=== PATIENT | female | born 1960 | race Caucasian/White ===

== ENCOUNTER 2017-05-03 12:37 | Emergency (ER) | payer OTHER ==
[2017-05-03] MEDS ORDERED: SODIUM CHLORIDE 0.9% 1,000 ML IV ONE (13:08)
[2017-05-03] MEDS ORDERED: PROCHLORPERAZINE 10 MG/2 ML VIAL IVP STA (13:08)
[2017-05-03] MEDS ORDERED: KETOROLAC 60 MG/2 ML VIAL IVP STA (13:08)
[2017-05-03] MEDS ORDERED: diphenhydrAMINE INJ 50 MG/ML VIAL IVP STA (13:08)
[2017-05-03] MEDS ORDERED: hydroCHLOROthiazide 25 MG TABLET PO STA (13:09)
[2017-05-03] MEDS ORDERED: LISINOPRIL 5 MG TABLET PO STA ×2 (13:09→15:22)
--- NOTE | 2017-05-03 13:12 | ED Physician Documentation ---
PD HPI HEADACHE - Stated complaint Stated Complaint: MIGRAINE - Chief complaint Chief Complaint: Neuro - History obtained from History obtained from: Patient - History of Present Illness Timing - onset: How many days ago (3) Timing - details: Still present Location: Front Quality: Throbbing Associated symptoms: Nausea. No: Fever, Vomiting Worsened by: Light, Noise, Moving Contributing factors: No: Recent illness Similar symptoms before: Diagnosis (migraines) - Additional information Additional information: The patient is a 56-year-old female who presents with migraine headache that started 3 days ago and persists. She describes it as a throbbing headache mostly in the frontal region. She reports associated photosensitivity and nausea. She denies vomiting or fever. She has a history of similar headaches since her teenage years. Her last similar headache was about 1 week ago. She also has history of hypertension for which she takes lisinopril/ hydrochlorothiazide. She has been out of her antihypertensive medication for the past month. She is also out of Maxalt which she normally uses to help with her headache. Review of Systems Constitutional: denies: Fever Eyes: reports: Photophobia. denies: Discharge Ears: denies: Tinnitus/ringing Nose: denies: Congestion Throat: denies: Sore throat Cardiac: denies: Chest pain / pressure Respiratory: denies: Dyspnea, Cough GI: reports: Nausea. denies: Abdominal Pain, Vomiting : denies: Dysuria Skin: denies: Rash Musculoskeletal: denies: Neck pain, Extremity swelling Neurologic: reports: Headache. denies: Focal weakness, Numbness PD PAST MEDICAL HISTORY - Past Medical History Cardiovascular: None Respiratory: None Neuro: Headache/migraine Endocrine/Autoimmune: None GI: None - Present Medications Home Medications: Ambulatory Orders Medication Instructions Recorded Confirmed Lisinopril/Hydrochlorothiazide 1 each PO DAILY #30 tablet 05/03/17 [Lisinopril-Hctz 20-25 mg Tab] Rizatriptan Benzoate [Maxalt] 10 mg PO ONCE PRN #20 tablet 05/03/17 - Allergies Allergies/Adverse Reactions: Allergies Allergy/AdvReac Type Severity Reaction Status Date / Time propoxyphene napsylate * Allergy Unknown Verified 05/03/17 12:48 [From Darvocet-N] acetaminophen [From Percocet] AdvReac Hallucinati Verified 05/03/17 12:48 ons morphine AdvReac Emesis Verified 05/03/17 12:48 oxycodone HCl * AdvReac Hallucinati Verified 05/03/17 12:48 [From Percocet] ons propoxyphene HCl * AdvReac Hallucinati Verified 05/03/17 12:48 [From Darvon] ons PD ED PE NORMAL - Vitals Vital signs reviewed: Yes (hypertensive) - General General: Alert and oriented X 3, Other (Overweight) - HEENT HEENT: Atraumatic, PERRL, EOMI, Ears normal, Pharynx benign, Other (Fundi with sharp disc margins.) - Neck Neck: Supple, no meningeal sign, No adenopathy, No JVD - Cardiac Cardiac: RRR, No murmur - Respiratory Respiratory: No respiratory distress, Clear bilaterally - Abdomen Abdomen: Soft, Non tender - Back Back: No CVA TTP - Derm Derm: No rash - Extremities Extremities: No edema, No calf tenderness / cord - Neuro Neuro: Alert and oriented X 3, No motor deficit, No sensory deficit Results - Vitals Vitals: Vital Signs - 24 hr 05/03/17 05/03/17 12:44 14:23 Temperature 36.4 C L Heart Rate 76 57 L Respiratory 18 18 Rate Blood Pressure 153/103 H 157/86 H O2 Saturation 97 99 Oxygen O2 Source Room air PD MEDICAL DECISION MAKING - ED course Complexity details: reviewed results, re-evaluated patient, considered differential, d/w patient, d/w family ED course: The patient's presentation is significant for headache, consistent with migraine. She also has hypertension, and reports being out of her antihypertensive medication for the past month. Her presentation does not suggest meningitis, temporal arteritis, intracranial hemorrhage, or pseudotumor cerebri. Treatment in the emergency department included administration of normal saline 1 L IV, Compazine 10 mg IV, Benadryl 50 mg IV, and ketorolac 30 mg IV. In addition she was treated with her normal antihypertensive medication , including lisinopril 20 mg orally and hydrochlorothiazide 25 mg orally. She is being discharged with prescriptions for lisinopril/hydrochlorothiazide and for Maxalt. I discussed with her and her family the importance of outpatient follow-up, symptomatic treatment, as well as potentially worrisome signs or symptoms that should prompt reevaluation in the emergency department. Departure - Departure Disposition: 01 Home, Self Care Clinical Impression: Headache Qualifiers: Headache type: unspecified Headache chronicity pattern: acute headache Intractability: not intractable Qualified Code(s): R51 - Headache Hypertension Qualifiers: Hypertension type: unspecified secondary hypertension Qualified Code(s): I15.9 - Secondary hypertension, unspecified Condition: Stable Instructions: ED Headache Migraine Follow-Up: Meliton Fuentes MD [Primary Care Provider] - Prescriptions: Lisinopril/Hydrochlorothiazide [Lisinopril-Hctz 20-25 mg Tab] 1 each PO DAILY # 30 tablet Rizatriptan Benzoate [Maxalt] 10 mg PO ONCE PRN #20 tablet PRN Reason: Headache Comments: Drink plenty of fluids. Resume taking your blood pressure medication. You can use Maxalt as prescribed if needed for recurrent migraine. Schedule follow-up appointment with your primary physician. Return to the emergency department if you develop increasing headache, persistent vomiting, or otherwise worsening symptoms. Forms: Activity restrictions Discharge Date/Time: 05/03/17 14:44
[2017-05-03] MEDS ORDERED: PROCHLORPERAZINE 10 MG/2 ML VIAL ONE (13:27)
[2017-05-03] MEDS ORDERED: KETOROLAC 30 MG/ML VIAL ONE (13:27)
[2017-05-03] MEDS ORDERED: LISINOPRIL 5 MG TABLET ONE (13:27)
[2017-05-03] MEDS ORDERED: diphenhydrAMINE INJ 50 MG/ML VIAL ONE (13:27)
[2017-05-03] MEDS ORDERED: hydroCHLOROthiazide 25 MG TABLET ONE (13:27)
[2017-05-03 14:23] VITALS: BP 157/86
== END 2017-05-03 14:44 | disposition home or self-care (01) ==
LOC: ED 12:37
DX: R51 Headache (principal); I15.9 Secondary hypertension, unspecified
CPT/HCPCS: 36415; 96374; 96375; 99283; 99284; A9270

== ENCOUNTER 2019-07-10 10:57 | Emergency (ER) | payer OTHER ==
[2019-07-10 11:08] VITALS: BP 147/90
[2019-07-10 11:38] LABS: MUDS CUTOFF CONCENTRATIONS CUTOFF CONC BELOW:
[2019-07-10 11:40] LABS: BASOPHILS % (AUTO) 0.6 %; EOSINOPHILS # (AUTO) 0.1 10^3/uL (0.0-0.7); EOSINOPHILS % (AUTO) 1.7 %; HGB - HEMOGLOBIN 14.4 g/dL (12.0-16.0); LYMPHOCYTES # (AUTO) 0.9 10^3/uL (1.5-3.5); LYMPHOCYTES % (AUTO) 16.5 %; MEAN CORPUSCULAR HEMOGLOBIN 30.8 pg (27.0-31.0); MEAN CORPUSCULAR HGB CONC 33.2 g/dL (32.0-36.0); MEAN CORPUSCULAR VOLUME 92.9 fL (81.0-99.0); MEAN PLATELET VOLUME 9.7 fL (7.9-10.8); MONOCYTES # (AUTO) 0.3 10^3/uL (0.0-1.0); MONOCYTES % (AUTO) 4.8 %; NEUTROPHILS # (AUTO) 4.1 10^3/uL (1.5-6.6); PLT - PLATELET COUNT 237 10^3/uL (130-450); RED BLOOD COUNT 4.67 10^6/uL (4.20-5.40); RED CELL DISTRIBUTION WIDTH 12.6 % (12.0-15.0); WHITE BLOOD COUNT 5.4 x10^3/uL (4.8-10.8)
[2019-07-10 11:43] LABS: GLUCOSE, URINE (UA) NEGATIVE (NEGATIVE); KETONES,URINE (UA) 15 mg/dL (NEGATIVE); LEUKOCYTE ESTERASE, URINE NEGATIVE (NEGATIVE); NITRITE,URINE NEGATIVE (NEGATIVE); OCCULT BLOOD,URINE NEGATIVE (NEGATIVE); PROTEIN,URINE NEGATIVE (NEGATIVE); UROBILINOGEN,URINE 1 (NORMAL) E.U./dL (NORMAL)
--- NOTE | 2019-07-10 11:50 | ED Physician Documentation ---
PD HPI MHE - Stated complaint Stated Complaint: SI - Chief complaint Chief Complaint: MHE - History obtained from History obtained from: Patient - History of Present Illness Primary symptom: Suicidal ideation Timing - onset: How many days ago (3) Pain level max: 0 Pain level now: 0 Contributing factors: Family, Off meds - Additional information Additional information: 58-year-old female states that she has had increasing issues with her adult son for the past several years. He has had issues with drugs, depression and suicidality. That she is spending all of her time focused on taking care of him. She has lost her home and her car because of him. She is living in a new place with him. She states that he took her car a week ago and has not been home since. She stopped taking her medications several months ago. She states that she is feeling increasingly suicidal. She states that she stares at her kitchen knives. She is unsure if she can keep herself safe or not. She states that she does not want to abandon her son. Review of Systems Ten Systems: 10 systems reviewed and negative Constitutional: denies: Fever, Chills Cardiac: denies: Chest pain / pressure Respiratory: denies: Cough, Wheezing GI: denies: Abdominal Pain, Nausea, Vomiting, Diarrhea Skin: denies: Rash Musculoskeletal: denies: Neck pain, Back pain Neurologic: denies: Headache Psychiatric: reports: Depressed, Suicidal, Anxiety, Insomnia. denies: Hallucinations, Delusions PD PAST MEDICAL HISTORY - Past Medical History Cardiovascular: None Respiratory: None Endocrine/Autoimmune: None GI: None - Allergies Allergies/Adverse Reactions: Allergies Allergy/AdvReac Type Severity Reaction Status Date / Time propoxyphene napsylate * Allergy Unknown Verified 07/10/19 11:08 [From Darvocet-N] acetaminophen [From Percocet] AdvReac Hallucinati Verified 07/10/19 11:08 ons morphine AdvReac Emesis Verified 07/10/19 11:08 oxycodone HCl * AdvReac Hallucinati Verified 07/10/19 11:08 [From Percocet] ons propoxyphene HCl * AdvReac Hallucinati Verified 07/10/19 11:08 [From Darvon] ons - Social History Does the pt smoke?: No Smoking Status: Never smoker Does the pt drink ETOH?: No Does the pt have substance abuse?: No - Immunizations Immunizations are current?: Yes - POLST Patient has POLST: No PD ED PE NORMAL - Vitals Vital signs reviewed: Yes - General General: Alert and oriented X 3, No acute distress, Well developed/nourished - HEENT HEENT: PERRL, Moist mucous membranes - Neck Neck: Supple, no meningeal sign - Cardiac Cardiac: RRR, Strong equal pulses - Respiratory Respiratory: No respiratory distress, Clear bilaterally - Abdomen Abdomen: Soft, Non tender, Non distended - Derm Derm: Warm and dry - Extremities Extremities: No edema, No calf tenderness / cord - Neuro Neuro: Alert and oriented X 3 - Psych Psych: Other (Tearful) Results - Vitals Vitals: Vital Signs - 24 hr 07/10/19 11:02 Temperature 36.8 C Heart Rate 73 Respiratory 20 Rate Blood Pressure 147/90 H O2 Saturation 95 Oxygen O2 Source Room air - Labs Labs: Laboratory Tests 07/10/19 07/10/19 07/10/19 11:25 11:35 11:35 WBC 5.4 RBC 4.67 Hgb 14.4 Hct 43.4 MCV 92.9 MCH 30.8 MCHC 33.2 RDW 12.6 Plt Count 237 MPV 9.7 Neut # (Auto) 4.1 Lymph # (Auto) 0.9 L [place] # (Auto) 0.3 Eos # (Auto) 0.1 Baso # (Auto) 0.0 Absolute Nucleated RBC 0.00 Nucleated RBC % 0.0 Sodium 143 Potassium 3.2 L Chloride 106 Carbon Dioxide 24 Anion Gap 13.0 BUN 22 H Creatinine 0.5 Estimated GFR (MDRD) 126 Glucose 126 H Calcium 9.3 Total Bilirubin 1.1 H AST 19 ALT 21 Alkaline Phosphatase 108 Total Protein 7.4 Albumin 4.5 Globulin 2.9 Albumin/Globulin Ratio 1.6 Lipase 22 TSH Urine Color DARK YELLOW Urine Clarity CLEAR Urine pH 5.0 Ur Specific [place] >=1.030 H Urine Protein NEGATIVE Urine Glucose (UA) NEGATIVE Urine Ketones 15 H Urine Occult Blood NEGATIVE Urine Nitrite NEGATIVE Urine Bilirubin NEGATIVE Urine Urobilinogen 1 (NORMAL) Ur Leukocyte Esterase NEGATIVE Ur Microscopic Review NOT INDICATED Urine Culture Comments NOT INDICATED Salicylates < 6.0 Urine Opiates Screen NEGATIVE Ur Oxycodone Screen NEGATIVE Urine Methadone Screen NEGATIVE Ur Propoxyphene Screen NEGATIVE Acetaminophen < 10 L Ur Barbiturates Screen NEGATIVE Ur Tricyclics Screen NEGATIVE Ur Phencyclidine Scrn NEGATIVE Ur Amphetamine Screen NEGATIVE U Methamphetamines Scrn NEGATIVE U Benzodiazepines Scrn NEGATIVE Urine Cocaine Screen NEGATIVE U Cannabinoids Screen NEGATIVE Ethyl Alcohol < 5.0 07/10/19 11:35 WBC RBC Hgb Hct MCV MCH MCHC RDW Plt Count MPV Neut # (Auto) Lymph # (Auto) [place] # (Auto) Eos # (Auto) Baso # (Auto) Absolute Nucleated RBC Nucleated RBC % Sodium Potassium Chloride Carbon Dioxide Anion Gap BUN Creatinine Estimated GFR (MDRD) Glucose Calcium Total Bilirubin AST ALT Alkaline Phosphatase Total Protein Albumin Globulin Albumin/Globulin Ratio Lipase TSH 1.30 Urine Color Urine Clarity Urine pH Ur Specific [place] Urine Protein Urine Glucose (UA) Urine Ketones Urine Occult Blood Urine Nitrite Urine Bilirubin Urine Urobilinogen Ur Leukocyte Esterase Ur Microscopic Review Urine Culture Comments Salicylates Urine Opiates Screen Ur Oxycodone Screen Urine Methadone Screen Ur Propoxyphene Screen Acetaminophen Ur Barbiturates Screen Ur Tricyclics Screen Ur Phencyclidine Scrn Ur Amphetamine Screen U Methamphetamines Scrn U Benzodiazepines Scrn Urine Cocaine Screen U Cannabinoids Screen Ethyl Alcohol PD MEDICAL DECISION MAKING - ED course Complexity details: reviewed results, re-evaluated patient, considered differential, d/w patient, d/w art sales consultant ED course: Social work consulted. Patient is able to contract for safety. She is comfortable going home at this time. She will keep herself safe. She will follow-up with her doctor and a counselor. Patient counseled regarding signs and symptoms for which I believe and urgent re-evaluation would be necessary. Patient with good understanding of and agreement to plan and is comfortable g oing home at this time This document was made in part using voice recognition software. While efforts are made to proofread this document, sound alike and grammatical errors may occur. Departure - Departure Disposition: 01 Home, Self Care Clinical Impression: Depression Qualifiers: Depression Type: unspecified Qualified Code(s): F32.9 - Major depressive disorder, single episode, unspecified Condition: Good Instructions: ED Depression Follow-Up: HELADIO BARCLAY DO [Primary Care Provider] - 07/22/19 Comments: Follow-up with Dr. Barclay for further care. Return if you worsen. Crisis Line and is available to talk to someone [email or web address] is also available to chat with someone online if you prefer. There are also many resources on this website and apps for your phone to help with your mental health You can also text the word START to [phone] to chat with someome via text. Discharge Date/Time: 07/10/19 15:49
[2019-07-10 11:52] LABS: BILIRUBIN,URINE NEGATIVE (NEGATIVE); CLARITY,URINE CLEAR (CLEAR); ICTOTEST,URINE NEGATIVE
[2019-07-10 11:53] LABS: AMPHETAMINE SCREEN,URINE NEGATIVE (NEGATIVE); BENZODIAZEPINES SCREEN, URINE NEGATIVE (NEGATIVE); COCAINE SCREEN URINE NEGATIVE (NEGATIVE); METHADONE SCREEN, URINE NEGATIVE (NEGATIVE); METHAMPHETAMINES SCREEN, URINE NEGATIVE (NEGATIVE); OPIATE SCREEN, URINE NEGATIVE (NEGATIVE); OXYCODONE SCREEN, URINE NEGATIVE (NEGATIVE); PROPOXYPHENE SCREEN, URINE NEGATIVE (NEGATIVE); TRICYCLIC ANTIDEPRESSANT,URINE NEGATIVE (NEGATIVE)
[2019-07-10 12:01] LABS: ACETAMINOPHEN < 10 ug/mL (10-30); ALBUMIN 4.5 g/dL (3.2-5.5); ALBUMIN/GLOBULIN RATIO 1.6 (1.0-2.2); ALKALINE PHOSPHATASE 108 IU/L (42-121); ALT ALANINE AMINOTRANSFERASE 21 IU/L (10-60); AST ASPARTATE AMINOTRANSFERASE 19 IU/L (10-42); BILIRUBIN,TOTAL 1.1 mg/dL (0.2-1.0); BUN - BLOOD UREA NITROGEN 22 mg/dL (6-20); CALCIUM 9.3 mg/dL (8.5-10.3); CARBON DIOXIDE - CO2 24 mmol/L (21-32); CHLORIDE 106 mmol/L (101-111); CREATININE 0.5 mg/dL (0.4-1.0); GFR - MDRD 126 (>89); GLUCOSE 126 mg/dL (70-100); LIPASE 22 U/L (22-51); SALICYLATE < 6.0 mg/dL; SODIUM 143 mmol/L (135-145); TOTAL PROTEIN 7.4 g/dL (6.7-8.2)
== END 2019-07-10 15:49 | disposition home or self-care (01) ==
LOC: ED 10:57
DX: F32.9 Major depressive disorder, single episode, unspecified (principal); R45.851 Suicidal ideations
CPT/HCPCS: 36415; 80053; 80306; 80307; 80320; 80329; 81001; 81003; 83690; 84443; 85025; 87086; 99283

== ENCOUNTER 2019-07-11 12:12 | Emergency (ER) | payer OTHER ==
[2019-07-11 12:54] LABS: MUDS CUTOFF CONCENTRATIONS CUTOFF CONC BELOW:
[2019-07-11 12:57] LABS: GLUCOSE, URINE (UA) NEGATIVE (NEGATIVE); KETONES,URINE (UA) 15 mg/dL (NEGATIVE); LEUKOCYTE ESTERASE, URINE NEGATIVE (NEGATIVE); NITRITE,URINE NEGATIVE (NEGATIVE); OCCULT BLOOD,URINE NEGATIVE (NEGATIVE); PH,URINE 5.5 PH (5.0-7.5); PROTEIN,URINE NEGATIVE (NEGATIVE); UROBILINOGEN,URINE 2 E.U./dL (NORMAL)
[2019-07-11 13:09] LABS: BILIRUBIN,URINE SMALL (NEGATIVE); CLARITY,URINE CLEAR (CLEAR); ICTOTEST,URINE POSITIVE
[2019-07-11 13:10] LABS: AMPHETAMINE SCREEN,URINE NEGATIVE (NEGATIVE); BENZODIAZEPINES SCREEN, URINE NEGATIVE (NEGATIVE); COCAINE SCREEN URINE NEGATIVE (NEGATIVE); METHADONE SCREEN, URINE NEGATIVE (NEGATIVE); METHAMPHETAMINES SCREEN, URINE NEGATIVE (NEGATIVE); OPIATE SCREEN, URINE NEGATIVE (NEGATIVE); OXYCODONE SCREEN, URINE NEGATIVE (NEGATIVE); PROPOXYPHENE SCREEN, URINE NEGATIVE (NEGATIVE); TRICYCLIC ANTIDEPRESSANT,URINE NEGATIVE (NEGATIVE)
--- NOTE | 2019-07-11 13:35 | ED Physician Documentation ---
PD HPI MHE - Stated complaint Stated Complaint: MHE - Chief complaint Chief Complaint: MHE - History obtained from History obtained from: Patient, Friend - History of Present Illness Primary symptom: Suicidal ideation Timing - onset: How many days ago (several) Pain level max: 0 Pain level now: 0 Contributing factors: Family (heroin addicted son), Off meds (stopped taking her meds 7-8 months ago) Similar symptoms before: Diagnosis (depression, SI) Recently seen: Emergency Dept (yesterday for same. A safety plan was created at that time with social work. The patient's daughter was unable to stay with her last night. She states that her neighbors took the knives from her kitchen today. She states that she lined up all the old and leftover pills and she thought about taking them this morning. She is concerned that she is unable to keep herself safe. neighbor brought her back today. She requests voluntary placement today.) Review of Systems Ten Systems: 10 systems reviewed and negative Constitutional: denies: Fever, Chills Ears: denies: Ear pain Nose: denies: Rhinorrhea / runny nose, Congestion Throat: denies: Sore throat Cardiac: denies: Chest pain / pressure Respiratory: denies: Cough GI: denies: Vomiting, Diarrhea : denies: Now EGA Skin: denies: Rash Musculoskeletal: denies: Neck pain, Back pain Neurologic: denies: Headache PD PAST MEDICAL HISTORY - Past Medical History Cardiovascular: None Respiratory: None Endocrine/Autoimmune: None GI: None - Allergies Allergies/Adverse Reactions: Allergies Allergy/AdvReac Type Severity Reaction Status Date / Time propoxyphene napsylate * Allergy Unknown Verified 07/10/19 11:08 [From Darvocet-N] acetaminophen [From Percocet] AdvReac Hallucinati Verified 07/10/19 11:08 ons morphine AdvReac Emesis Verified 07/10/19 11:08 oxycodone HCl * AdvReac Hallucinati Verified 07/10/19 11:08 [From Percocet] ons propoxyphene HCl * AdvReac Hallucinati Verified 07/10/19 11:08 [From Darvon] ons - Social History Does the pt smoke?: No Smoking Status: Never smoker Does the pt drink ETOH?: No Does the pt have substance abuse?: No - Immunizations Immunizations are current?: Yes - POLST Patient has POLST: No PD ED PE NORMAL - Vitals Vital signs reviewed: Yes - General General: Alert and oriented X 3, No acute distress, Well developed/nourished - HEENT HEENT: PERRL, Moist mucous membranes - Neck Neck: Supple, no meningeal sign - Cardiac Cardiac: RRR, Strong equal pulses - Respiratory Respiratory: No respiratory distress, Clear bilaterally - Abdomen Abdomen: Soft, Non tender, Non distended - Derm Derm: Warm and dry - Extremities Extremities: No edema - Neuro Neuro: Alert and oriented X 3 - Psych Psych: Other (tearful) Results - Vitals Vitals: Vital Signs - 24 hr 07/11/19 07/11/19 12:21 18:06 Temperature 36.9 C 36.6 C Heart Rate 79 94 Respiratory 16 16 Rate Blood Pressure 184/84 H 146/71 H O2 Saturation 98 94 Oxygen O2 Source Room air - EKG (time done) 1336 Rate: Rate (enter#) (63) Rhythm: NSR [place]: Normal Intervals: Normal IN QRS: Normal Ischemia: Normal ST segments - Labs Labs: Laboratory Tests 07/11/19 07/11/19 07/11/19 12:45 13:35 13:35 WBC 6.9 RBC 4.57 Hgb 14.0 Hct 41.9 MCV 91.7 MCH 30.6 MCHC 33.4 RDW 12.6 Plt Count 251 MPV 9.8 Neut # (Auto) 5.5 Lymph # (Auto) 1.0 L [place] # (Auto) 0.3 Eos # (Auto) 0.1 Baso # (Auto) 0.0 Absolute Nucleated RBC 0.00 Nucleated RBC % 0.0 Sodium 143 Potassium 3.6 Chloride 106 Carbon Dioxide 27 Anion Gap 10.0 BUN 20 Creatinine 0.6 Estimated GFR (MDRD) 102 Glucose 113 H Calcium 9.5 Total Bilirubin 1.3 H AST 25 ALT 27 Alkaline Phosphatase 113 Total Protein 7.6 Albumin 4.3 Globulin 3.3 Albumin/Globulin Ratio 1.3 Lipase 19 L TSH Urine Color DARK YELLOW Urine Clarity CLEAR Urine pH 5.5 Ur Specific [place] >=1.030 H Urine Protein NEGATIVE Urine Glucose (UA) NEGATIVE Urine Ketones 15 H Urine Occult Blood NEGATIVE Urine Nitrite NEGATIVE Urine Bilirubin SMALL H Urine Urobilinogen 2 H Ur Leukocyte Esterase NEGATIVE Ur Microscopic Review NOT INDICATED Urine Culture Comments NOT INDICATED Salicylates < 6.0 Urine Opiates Screen NEGATIVE Ur Oxycodone Screen NEGATIVE Urine Methadone Screen NEGATIVE Ur Propoxyphene Screen NEGATIVE Acetaminophen < 10 L Ur Barbiturates Screen NEGATIVE Ur Tricyclics Screen NEGATIVE Ur Phencyclidine Scrn NEGATIVE Ur Amphetamine Screen NEGATIVE U Methamphetamines Scrn NEGATIVE U Benzodiazepines Scrn NEGATIVE Urine Cocaine Screen NEGATIVE U Cannabinoids Screen NEGATIVE Ethyl Alcohol < 5.0 07/11/19 13:35 WBC RBC Hgb Hct MCV MCH MCHC RDW Plt Count MPV Neut # (Auto) Lymph # (Auto) [place] # (Auto) Eos # (Auto) Baso # (Auto) Absolute Nucleated RBC Nucleated RBC % Sodium Potassium Chloride Carbon Dioxide Anion Gap BUN Creatinine Estimated GFR (MDRD) Glucose Calcium Total Bilirubin AST ALT Alkaline Phosphatase Total Protein Albumin Globulin Albumin/Globulin Ratio Lipase TSH 0.88 Urine Color Urine Clarity Urine pH Ur Specific [place] Urine Protein Urine Glucose (UA) Urine Ketones Urine Occult Blood Urine Nitrite Urine Bilirubin Urine Urobilinogen Ur Leukocyte Esterase Ur Microscopic Review Urine Culture Comments Salicylates Urine Opiates Screen Ur Oxycodone Screen Urine Methadone Screen Ur Propoxyphene Screen Acetaminophen Ur Barbiturates Screen Ur Tricyclics Screen Ur Phencyclidine Scrn Ur Amphetamine Screen U Methamphetamines Scrn U Benzodiazepines Scrn Urine Cocaine Screen U Cannabinoids Screen Ethyl Alcohol PD MEDICAL DECISION MAKING - ED course Complexity details: reviewed old records, reviewed results, re-evaluated patient, considered differential, d/w patient ED course: Patient is medically clear for psychiatric care. She is emotionally labile here. She is tearful. She does not feel like she can keep herself safe. She requests voluntary placement today. Her safety plan fell through yesterday. We will attempt placement today. Tele-psychiatry was consulted and recommends voluntary placement. They state that if she changes her mind and tries to leave, she would meet criteria for involuntary placement. Patient signed out to the [facility] emergency department physician. Social work is not available here today. Departure - Departure Clinical Impression: Suicidal ideation Depression Qualifiers: Depression Type: unspecified Qualified Code(s): F32.9 - Major depressive disorder, single episode, unspecified Condition: Stable
[2019-07-11 13:40] LABS: BASOPHILS % (AUTO) 0.6 %; EOSINOPHILS # (AUTO) 0.1 10^3/uL (0.0-0.7); EOSINOPHILS % (AUTO) 0.9 %; LYMPHOCYTES % (AUTO) 13.8 %; MEAN CORPUSCULAR HEMOGLOBIN 30.6 pg (27.0-31.0); MEAN CORPUSCULAR HGB CONC 33.4 g/dL (32.0-36.0); MEAN CORPUSCULAR VOLUME 91.7 fL (81.0-99.0); MEAN PLATELET VOLUME 9.8 fL (7.9-10.8); MONOCYTES # (AUTO) 0.3 10^3/uL (0.0-1.0); MONOCYTES % (AUTO) 4.6 %; NEUTROPHILS # (AUTO) 5.5 10^3/uL (1.5-6.6); NEUTROPHILS % (AUTO) 79.8 %; PLT - PLATELET COUNT 251 10^3/uL (130-450); RED BLOOD COUNT 4.57 10^6/uL (4.20-5.40); RED CELL DISTRIBUTION WIDTH 12.6 % (12.0-15.0); WHITE BLOOD COUNT 6.9 x10^3/uL (4.8-10.8)
[2019-07-11 13:55] LABS: ACETAMINOPHEN < 10 ug/mL (10-30); ALBUMIN 4.3 g/dL (3.2-5.5); ALBUMIN/GLOBULIN RATIO 1.3 (1.0-2.2); ALKALINE PHOSPHATASE 113 IU/L (42-121); ALT ALANINE AMINOTRANSFERASE 27 IU/L (10-60); AST ASPARTATE AMINOTRANSFERASE 25 IU/L (10-42); BILIRUBIN,TOTAL 1.3 mg/dL (0.2-1.0); BUN - BLOOD UREA NITROGEN 20 mg/dL (6-20); CALCIUM 9.5 mg/dL (8.5-10.3); CARBON DIOXIDE - CO2 27 mmol/L (21-32); CHLORIDE 106 mmol/L (101-111); CREATININE 0.6 mg/dL (0.4-1.0); GFR - MDRD 102 (>89); GLUCOSE 113 mg/dL (70-100); LIPASE 19 U/L (22-51); SALICYLATE < 6.0 mg/dL; SODIUM 143 mmol/L (135-145); TOTAL PROTEIN 7.6 g/dL (6.7-8.2)
--- NOTE | 2019-07-11 17:48 | TELEPSYCH PHYS NOTE ---
Telepsych Note - CHIEF COMPLAINT/HX OF PRESENT ILLNESS Cheif Complaint and History of Present Illness: Name: Rhina Evans : 58. 58f Date: 07/11/19 Time: 8:20pm Location of patient: [facility] ED Location of doctor: [facility] This evaluation was conducted via telepsychiatry with the assistance of onsite staff Chief Complaint: depression/si History of Present Illness: Pt seen by televideo with help from the onsite staff. Pt is a 58 yo female with hx of Depression and anxiety. This is the pts 2nd ED visit for crisis and SI in the past 24 hours. Per ED, yesterday she presented to the hospital with Si with thoughts to use a knife. She was discharged at that time with a safety plan including removal of all the knives and for one of her daughters to stay with her. However her daughter was unable to do so. She returned today with continued Si and this time a plan to overdose on all of her medications. Pt seen and evaluated, chart reviewed and appreciated. Pt states she feels very depressed. Notes her depression has been worsening for the past 7-8 months since she discontinued her psychiatric treatment/medications. Pt reports that she committed at that time to help one of her sons who has mental illness and severe chemical addiction. States all her resources have gone into him. States she has lost her home and car. Recently obtained a new car however her son apparently left with it and did not return. Pt reports she had no further resources to continue her own psychiatric care. Pt states that her sxs worsened more significantly in the past 3 months. Cites sxs inclusive of pervasive depressed mood, poor sleep, decreased appetite, feelings of helplessness, hopelessness and increasing suicidality. Pt notes this morning she took out and lined up all of her medications with the intent to overdose and kill herself. States she stopped herself and reached out for help after she thoughts of disappointing her other 3 children. She notes that she continues to feel suicidal and does not believe she can keep herself safe outside of the hospital. On ROS, pt denies AVHs, delusions nor HI. Notes ongoing SI with plan. Pt presents as a danger to herself requiring acute inpt psychiatric admission for safety, stabilization and treatment. Pt is voluntary for inpt treatment. Collateral: Discussed case with staff and chart review. No family available at the time of the evaluation. MSE: Appearance and attire: hospital attire Attitude and behavior: cooperative Affect and mood: depressed, tearful Association and thought processes: linear Thought content: Denies delusions. Denies HI. + SI with plan Perception: Denies AVHs Sensorium, memory, and orientation: AxOx3 Intellectual functioning: average Insight and judgment: poor - SI/HI/SELF HARM SI/HI/SELF HARM (CURRENT OR HISTORY OF):: SI - PSYCHIATRIC HX/TREATMENT HX Psychiatric: Depression, Anxiety - MEDICAL HX Does the pt have a hx of MRSA?: No Cardiovascular: None Respiratory: None Endocrine/Autoimmune: None Gastrointestinal: None - ALLERGIES Allergies (as last confirmed): Allergies Allergy/AdvReac Type Severity Reaction Status Date / Time propoxyphene napsylate * Allergy Unknown Verified 07/10/19 11:08 [From Darvocet-N] acetaminophen [From Percocet] AdvReac Hallucinati Verified 07/10/19 11:08 ons morphine AdvReac Emesis Verified 07/10/19 11:08 oxycodone HCl * AdvReac Hallucinati Verified 07/10/19 11:08 [From Percocet] ons propoxyphene HCl * AdvReac Hallucinati Verified 07/10/19 11:08 [From Darvon] ons - FAMILY PSYCH/SUICIDE/SOCIAL HX-MENTAL Family - Suicide - Social Hx and Mental Status Exam: Reports that her son is mentally ill and chemically addicted. - TREATMENT/PHARMACOLOGICAL RECOMMENDATION Treatment - Pharmacological - Therapy Recommendations: Diagnosis: MDD, severe, recurrent without psychotic features. Assessment/Risk Assessment: Pt is presenting with worsening si/sxs of a major depressive episode inclusive of hopelessness, helplessness and SI with plan. Pt presents as a danger to herself requiring acute inpt psychiatric admission for safety, stabilization and treatment. Pt is voluntary for inpt treatment. Treatment Recommendations: Pt requires acute inpt psychiatric admission For safety, stabilization and treatment Pt is voluntary for inpt treatment Should the pt no longer agree to voluntary admission, she cannot leave and would require and meet criteria for involuntary placement. - TIME SPENT & PROVIDER LOCATION Telepsych consultation conducted via videoconferencing: Yes List names and roles of persons who participated in consult: [email or web address] Telepsych Provider Location: [place] Time Telepsych consult began: 20:25 Time Telepsych consult completed: 08:40
--- NOTE | 2019-07-11 21:16 | ED Physician Documentation ---
ED Addendum - Addendum Addendum: 07/11/19 21:16 Patient was accepted at [facility] and transfer forms were filled out.
[2019-07-11 22:06] VITALS: BP 159/97
== END 2019-07-11 22:11 ==
LOC: ED 12:12
DX: F32.9 Major depressive disorder, single episode, unspecified (principal); R45.851 Suicidal ideations; R45.86 Emotional lability; T43.206A Underdosing of unspecified antidepressants, initial encounter; Z91.128 Patient's intentional underdosing of medication regimen for other reason
CPT/HCPCS: 36415; 80320; 80329; 81003; 83690; 93005; 99285; G0427; 80053; 80306; 80307; 81001; 84443; 85025; 87086

== ENCOUNTER 2021-10-15 00:01 | Emergency (ER) | payer OTHER ==
[2021-10-15] MEDS ORDERED: BACITRACIN ZINC OINT 1 PACKET TOP STA (00:26)
[2021-10-15] MEDS ORDERED: AMOX/CLAV 875 MG/125 MG TABLET PO STA (00:26)
--- NOTE | 2021-10-15 00:32 | ED Physician Documentation ---
PD HPI WOUND RECHECK - Stated complaint Stated Complaint: FLEA BITES/LOWER LEGS - Chief complaint Chief Complaint: Wound - Additional information Additional information: Is a 60-year-old female presenting to the emergency department with lower extremity weeping sores, with increased pain and redness x2 days. States has had sores on her legs for several weeks. Reports that she believes that they were originally fleabites. Subsequently states that they have been getting worse, now leaking clear fluid and redness and tenderness is developed, over sores on both of her legs. She denies any history of diabetes but reports a family history of diabetes. She denies any fever, chills, chest pain, shortness of breath, abdominal pain, nausea vomiting, diarrhea, constipation. Review of Systems Ten Systems: 10 systems reviewed and negative Constitutional: denies: Fever Eyes: denies: Loss of vision Ears: denies: Loss of hearing Nose: denies: Rhinorrhea / runny nose Throat: denies: Dental pain / toothache Cardiac: denies: Chest pain / pressure Respiratory: denies: Dyspnea GI: denies: Abdominal Pain : denies: Dysuria Skin: reports: Lesions, Bite / sting Musculoskeletal: denies: Neck pain Neurologic: denies: Generalized weakness Psychiatric: denies: Depressed PD PAST MEDICAL HISTORY - Past Medical History Past Medical History: Yes Cardiovascular: Hypertension Respiratory: None Neuro: Migraines Endocrine/Autoimmune: None GI: None Psych: Depression, Anxiety Musculoskeletal: Osteoarthritis, Osteoporosis, Scoliosis - Past Surgical History Past Surgical History: Yes General: Cholecystectomy, 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, Hysterectomy - Present Medications Home Medications: Ambulatory Orders Medication Instructions Recorded Confirmed Amox/Clav 875/125 [Augmentin] 1 tab PO Q12H #20 tablet 10/15/21 diphenhydrAMINE [Benadryl] 25 mg PO HS PRN #30 cap 10/15/21 - Allergies Allergies/Adverse Reactions: Allergies Allergy/AdvReac Type Severity Reaction Status Date / Time propoxyphene napsylate * Allergy Unknown Verified 10/15/21 00:15 [From Darvocet-N] acetaminophen [From Percocet] AdvReac Hallucinati Verified 10/15/21 00:15 ons morphine AdvReac Emesis Verified 10/15/21 00:15 oxycodone HCl * AdvReac Hallucinati Verified 10/15/21 00:15 [From Percocet] ons propoxyphene HCl * AdvReac Hallucinati Verified 10/15/21 00:15 [From Darvon] ons - Social History Does the pt smoke?: No Smoking Status: Never smoker Does the pt drink ETOH?: No Does the pt have substance abuse?: No - Immunizations Immunizations are current?: Yes - POLST Patient has POLST: No PD ED PE NORMAL - General General: Alert and oriented X 3 - HEENT HEENT: Atraumatic - Neck Neck: Supple, no meningeal sign - Cardiac Cardiac: RRR - Respiratory Respiratory: No respiratory distress - Abdomen Abdomen: Normal bowel sounds - Female Female : Deferred - Rectal Rectal: Deferred - Derm Derm: Normal color - Neuro Neuro: Alert and oriented X 3, 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 There is some mild clear purulent drainage noted from a few of the larger sores. Additionally there is not circumferential erythema on the anterior aspect of the patient's right calf with induration but without fluctua) Results - Vitals Vitals: Vital Signs - 24 hr 10/15/21 00:05 Temperature 37.0 C Heart Rate 95 Respiratory 16 Rate Blood Pressure 183/111 H O2 Saturation 98 Oxygen O2 Source Room air PD MEDICAL DECISION MAKING - ED course Complexity details: d/w patient ED course: Patient is a 60-year-old female presenting to the emergency department with concern for lower extremity wounds, possibly with overlying soft tissue infection. Afebrile, hemodynamically stable on arrival to the emergency department. She did present with her lower extremities wrapped in cellophane, stating that this helps her prevent itching. She reported that she had tried numerous things including hydrogen peroxide and apple vinegar on her legs with minimal effect and presents to the emergency department now that they are getting "red and swollen". Physical exam does demonstrate multiple weeping abrasions to her lower extremities with some areas of erythema, rubor and induration without fluctuance. Wound care was administered in the emergency department and patient was started on course of Augmentin. She was otherwise afebrile, hemodynamically stable and denied any history that would be suggestive of systemic involvement in her infection. I encouraged her to follow-up carefully with primary care in order to ensure appropriate wound resolution and/or return to the emergency department for new or worsening symptoms. Departure - Departure Disposition: 01 Home, Self Care Clinical Impression: Abrasion, Cellulitis of leg Instructions: Cellulitis Dc Prescriptions: Amox/Clav 875/125 [Augmentin] 1 tab PO Q12H #20 tablet diphenhydrAMINE [Benadryl] 25 mg PO HS PRN #30 cap PRN Reason: Itching Comments: Thank you for allowing us to care for you today at [facility]. I am concerned that the abrasions on your legs are showing some clear indications of infection. I like her to begin a course of oral antibiotics. I recommend twice daily application of a topical antibiotic ointment such as bacitracin or Neosporin. Please change your dressings on your legs once daily. Please follow-up with your primary care doctor soon as possible for wound rec heck and further evaluation. If it anytime you have any new or worsening symptoms, or if the area of infection in your leg continues to spread please return to the emergency department.
[2021-10-15 01:00] VITALS: BP 162/112
== END 2021-10-15 00:55 | disposition home or self-care (01) ==
LOC: ED 00:01
DX: S80.812A Abrasion, left lower leg, initial encounter (principal); S80.811A Abrasion, right lower leg, initial encounter; L03.116 Cellulitis of left lower limb; L03.115 Cellulitis of right lower limb; X58.XXXA Exposure to other specified factors, initial encounter; I10 Essential (primary) hypertension; Z83.3 Family history of diabetes mellitus
CPT/HCPCS: 99282; 99284; A9270

== ENCOUNTER 2022-02-05 13:10 | Emergency (ER) | payer OTHER ==
[2022-02-05 13:21] VITALS: BP 183/94
--- NOTE | 2022-02-05 13:38 | ED Physician Documentation ---
History of Present Illness - Stated complaint Stated Complaint: LT CALF PX - Chief complaint Chief Complaint: Ext Problem - Additonal information Additional information: 61-year-old female presents emergency department for evaluation of left posterior calf pain. Reports that she was walking down an incline and when she had gotten to the flat part was getting ready to cross the road when she felt a pop in the back of her calf. Has had some pain when walking since. No history of similar. She has no leg swelling, recent surgery, immobilizations. No history of blood clots or cancer. She is ambulatory though she feels a pull in her calf muscle when doing so. 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 - Present Medications Home Medications: Ambulatory Orders Medication Instructions Recorded Confirmed Amox/Clav 875/125 [Augmentin] 1 tab PO Q12H #20 tablet 10/15/21 Cyclobenzaprine [Flexeril] 10 mg PO DAILY PRN 10/15/21 10/15/21 Ergocalciferol [Vitamin D2] 1 cap PO DAILY 10/15/21 10/15/21 Escitalopram [Lexapro] 10 mg PO DAILY 10/15/21 10/15/21 Ibuprofen [Motrin] 800 mg PO Q8HR PRN 10/15/21 10/15/21 Meloxicam [Mobic] 15 mg PO DAILY 10/15/21 10/15/21 Propranolol [Inderal] 10 mg PO BID 10/15/21 10/15/21 diphenhydrAMINE [Benadryl] 25 mg PO HS PRN #30 cap 10/15/21 hydroCHLOROthiazide [Hydrodiuril] 25 mg PO DAILY 10/15/21 10/15/21 traZODone [Desyrel] 25 mg PO QPM PRN 10/15/21 10/15/21 - Allergies Allergies/Adverse Reactions: Allergies Allergy/AdvReac Type Severity Reaction Status Date / Time propoxyphene napsylate * Allergy Unknown Verified 02/05/22 13:21 [From Darvocet-N] acetaminophen [From Percocet] AdvReac Hallucinati Verified 02/05/22 13:21 ons morphine AdvReac Emesis Verified 02/05/22 13:21 oxycodone HCl * AdvReac Hallucinati Verified 02/05/22 13:21 [From Percocet] ons propoxyphene HCl * AdvReac Hallucinati Verified 02/05/22 13:21 [From Darvon] ons - Social History Does the pt smoke?: No Smoking Status: Never smoker Does the pt drink ETOH?: No Does the pt have substance abuse?: No - Immunizations Immunizations are current?: Yes - POLST Patient has POLST: No PD ED PE EXPANDED - General General: Alert, No acute distress, Well developed/nourished - Extremities Extremities: Left leg (Pt has mild swelling mid castrocnemis with standing onb ball of feet. no ecchymosis or erythema. No leg swelling. ) Results - Vitals Vitals: Vital Signs - 24 hr 02/05/22 13:15 Temperature 36.2 C L Heart Rate 73 Respiratory 18 Rate Blood Pressure 183/94 H O2 Saturation 97 Oxygen O2 Source Room air PD MEDICAL DECISION MAKING - ED course Complexity details: re-evaluated patient, considered differential, d/w patient ED course: 61-year-old female presents emergency department for evaluation of acute left calf pain after she felt a pop in the back of her calf when was descending down an incline. On exam she has some mild swelling and tenderness in the posterior gastrocnemius when she elevates her self on the balls of her feet. I suspect that she has a mild tear or sprain. She is placed in an Issac wrap recommended ice ibuprofen and Tylenol. pt felt improved with acewrap. If not improved in 7 to 10 days would benefit from follow-up to orthopedics or physical therapy. Clinically history is not suggestive of DVT and will defer imaging at this time. Departure - Departure Disposition: 01 Home, Self Care Clinical Impression: Gastrocnemius muscle strain Qualifiers: Encounter type: initial encounter Laterality: left Qualified Code(s): S86.112A - Strain of other muscle(s) and tendon(s) of posterior muscle group at lower leg level, left leg, initial encounter Condition: Stable Record reviewed to determine appropriate education?: Yes Instructions: Gastrocnemius Muscle Tear Comments: Rhina you are seen today for pain behind your left calf when you felt a pop while walking. As we discussed at the bedside I suspect that you have either a strain or a small tear in the gastrocnemius muscle. We have placed you in an Issac wrap. I would like you to wear this when out of bed. I do recommend that you take the Aleve with food twice a day or alternate with Tylenol for pain. In most circumstances muscle tears will begin to get better after 7 to 10 days. If years is not markedly better you may need to follow-up with your primary care doctor to consider physical therapy or referral to orthopedics.
[2022-02-05] MEDS ORDERED: KETOROLAC 60 MG/2 ML VIAL IM STA (13:40)
== END 2022-02-05 14:01 | disposition home or self-care (01) ==
LOC: ED 13:10
DX: S86.112A Strain of other muscle(s) and tendon(s) of posterior muscle group at lower leg level, left leg, initial encounter (principal); X58.XXXA Exposure to other specified factors, initial encounter; Y93.01 Activity, walking, marching and hiking; Y92.89 Other specified places as the place of occurrence of the external cause
CPT/HCPCS: 96372; 99282; 99283

== ENCOUNTER 2022-05-03 13:45 | Emergency (ER) | payer OTHER ==
--- NOTE | 2022-05-03 15:40 | Ultrasound Report ---
PROCEDURE: Duplex Ext Veins Right INDICATIONS: Pain and swelling. TECHNIQUE: Real-time imaging, as well as color and pulse Doppler interrogation, were performed of the lower extr emity deep veins from the inguinal ligament to the popliteal fossa. COMPARISON: None. FINDINGS: The deep veins are normally compressible, and free of intraluminal thrombus. Color and pu lse Doppler demonstrate normal phasic intraluminal flow. There is normal augmentation response to di stal compression maneuver. Borderline enlarged groin lymph nodes. IMPRESSION: No deep venous process. Reviewed by: Elana Marrufo MD on 05/03/2022 3:39 PM PDT Approved by: Elana Marrufo MD on 05/03/2022 3:39 PM PDT Station ID: [id number]
--- NOTE | 2022-05-03 15:41 | ED Physician Documentation ---
PD HPI LOWER EXT INJURY - Stated complaint Stated Complaint: SWELLING RIGH LEG - Chief complaint Chief Complaint: Ext Problem - History obtained from History obtained from: Patient - History of Present Illness Type of injury: No: Fall, Twist Where injury occurred: Home Timing - onset: How many days ago (few) Timing - duration: Days Timing - details: Gradual onset, Still present Improved by: No: Rest Worsened by: Palpating Associated symptoms: Swelling (had some small skin abrasions/ulcers that got swelling, red and tender with increasing area over few days.), Discolored (redness and swelling anterior lower leg with small ulcerations.). No: Weakness, Numbness Similar symptoms before: Has not had sx before Recently seen: Clinic (seen at [facility] and referred to ER for concern of DVT. 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 - Present Medications Home Medications: Ambulatory Orders Medication Instructions Recorded Confirmed Amox/Clav 875/125 [Augmentin] 1 tab PO Q12H #20 tablet 10/15/21 Cyclobenzaprine [Flexeril] 10 mg PO DAILY PRN 10/15/21 10/15/21 Ergocalciferol [Vitamin D2] 1 cap PO DAILY 10/15/21 10/15/21 Escitalopram [Lexapro] 10 mg PO DAILY 10/15/21 10/15/21 Ibuprofen [Motrin] 800 mg PO Q8HR PRN 10/15/21 10/15/21 Meloxicam [Mobic] 15 mg PO DAILY 10/15/21 10/15/21 Propranolol [Inderal] 10 mg PO BID 10/15/21 10/15/21 diphenhydrAMINE [Benadryl] 25 mg PO HS PRN #30 cap 10/15/21 hydroCHLOROthiazide [Hydrodiuril] 25 mg PO DAILY 10/15/21 10/15/21 traZODone [Desyrel] 25 mg PO QPM PRN 10/15/21 10/15/21 Doxycycline Hyclate 100 mg PO BID 7 Days #14 cap 05/03/22 HYDROcod/ACETAM 5/325 [[place] 5/325] 1 ea PO Q6H PRN #15 tablet 05/03/22 Mupirocin 2% Oint [Bactroban 2% 1 applic TOP TID #15 gm 05/03/22 Oint] cephALEXin [Keflex] 500 mg PO TID #20 cap 05/03/22 - Allergies Allergies/Adverse Reactions: Allergies Allergy/AdvReac Type Severity Reaction Status Date / Time propoxyphene napsylate * Allergy Unknown Verified 05/03/22 14:25 [From Darvocet-N] acetaminophen [From Percocet] AdvReac Hallucinati Verified 05/03/22 14:25 ons morphine AdvReac Emesis Verified 05/03/22 14:25 oxycodone HCl * AdvReac Hallucinati Verified 05/03/22 14:25 [From Percocet] ons propoxyphene HCl * AdvReac Hallucinati Verified 05/03/22 14:25 [From Darvon] ons - Social History Does the pt smoke?: No Smoking Status: Never smoker Does the pt drink ETOH?: No Does the pt have substance abuse?: No - Immunizations Immunizations are current?: Yes - POLST Patient has POLST: No PD ED PE NORMAL - Vitals Vital signs reviewed: Yes - General General: Alert and oriented X 3, No acute distress, Well developed/nourished - Cardiac Cardiac: No murmur - Respiratory Respiratory: Clear bilaterally - Derm Derm: Normal color, Warm and dry - Extremities Extremities: Other (right anterior lower leg with small skin ulcerations to fatty tissue. No FBs. No draiange right now. There is surrounding redness and swellling extending to medial calf. No posterior calf tenderness nor swelling. ) - Neuro Neuro: Alert and oriented X 3, No motor deficit, No sensory deficit, Normal speech Results - Vitals Vitals: Vital Signs - 24 hr 05/03/22 05/03/22 05/03/22 14:20 14:25 16:25 Temperature 36.3 C L 36.3 C L Heart Rate 101 H 101 H 103 H Respiratory 16 16 18 Rate Blood Pressure 139/89 H 139/89 H 125/99 H O2 Saturation 96 96 93 05/03/22 17:09 Temperature Heart Rate 109 H Respiratory 16 Rate Blood Pressure 125/99 H O2 Saturation Oxygen O2 Source Room air - Rads (name of study) duplex right leg Radiology: Prelim report reviewed, See rad report, Other (Design Eng reports no DVT.) Departure - Departure Disposition: Home, Self Care Clinical Impression: Lower leg edema Skin ulcer Qualifiers: Non-pressure ulcer stage: unspecified non-pressure ulcer stage Qualified Code(s): L98.499 - Non-pressure chronic ulcer of skin of other sites with unspecified severity Cellulitis Qualifiers: Site of cellulitis: extremity Site of cellulitis of extremity: lower extremity Laterality: right Qualified Code(s): L03.115 - Cellulitis of right lower limb Condition: Stable Record reviewed to determine appropriate education?: Yes Prescriptions: Mupirocin 2% Oint [Bactroban 2% Oint] 1 applic TOP TID #15 gm Doxycycline Hyclate 100 mg PO BID 7 Days #14 cap cephALEXin [Keflex] 500 mg PO TID #20 cap HYDROcod/ACETAM 5/325 [[place] 5/325] 1 ea PO Q6H PRN #15 tablet PRN Reason: Pain Comments: This does look like a cellulitis/skin infection in the area of the skin ulcerations. Your ultrasound is good without any signs of blood clots. I would treat this with topical antibiotic ointment of mupirocin along with wound cleansing twice daily and Issac wrap for swelling. I would also go with oral antibiotics of cephalexin and doxycycline to cover a good range of potential germs causing the infection. Elevate rest and Issac wrap often over the weekend. Return if expanding redness and swelling over the next few days. Otherwise follow-up with your primary care next week for reevaluation. I transmitted your prescriptions to [facility] pharmacy in [place]. I am prescribing a short course of narcotic pain medication for you. These are potentially dangerous and addictive medications that should be used carefully. These medications may constipate you. Take an [id number] stool softener such as docusate twice daily with plenty of water while taking these medications. If you go 24 hours without a bowel movement, take [id number] MiraLAX, per package instructions. Do not drink or drive while taking these medications. If you received narcotic or sedating medications while in the emergency department do not drive for 24 hours. Store this medication in a safe, secure place and out of reach of children. It is a violation of federal law to give or sell this medication to another person or to use in a manner other than prescribed. The ED will not refill narcotic prescriptions, including prescriptions lost or stolen. You can dispose of unwanted medications at the [facility]'s office or at several pharmacies such as [facility]. Discharge Date/Time: 05/03/22 17:52
[2022-05-03] MEDS ORDERED: HYDROcod/ACETAM 5/325 MG TABLET PO STA (16:16)
[2022-05-03] MEDS ORDERED: cephALEXin 250 MG CAPSULE PO STA (16:16)
[2022-05-03] MEDS ORDERED: DOXYCYCLINE 100 MG TABLET PO STA (16:16)
[2022-05-03] MEDS ORDERED: MUPIROCIN 2% OINT 1 GM TOP STA (16:16)
[2022-05-03 17:06] VITALS: BP 125/99
== END 2022-05-03 17:52 | disposition home or self-care (01) ==
LOC: ED 13:45
DX: L97.812 Non-pressure chronic ulcer of other part of right lower leg with fat layer exposed (principal); R60.0 Localized edema; L03.115 Cellulitis of right lower limb
CPT/HCPCS: 93971; 99284; A9270

== ENCOUNTER 2023-05-19 14:05 | Emergency (ER) | payer OTHER ==
[2023-05-19 14:10] VITALS: BP 150/82; O2SAT 94
--- NOTE | 2023-05-19 15:25 | XRAY Report ---
PROCEDURE: Knee 4 View LT INDICATIONS: Trauma TECHNIQUE: 4 views of the left knee(s) were acquired. COMPARISON: None. FINDINGS: Bones: No fractures or dislocations. No suspicious bony lesions. Tricompartment osteoarthritic martinez ges with joint space narrowing and marginal osteophytosis. There is severe joint space narrowing with in the patellofemoral compartment with subchondral sclerosis and cystic changes. Soft tissues: Small knee joint effusion with possible intra-articular body. No suspicious soft tissu e calcifications or masses. IMPRESSION: 1.No acute fracture or dislocation. 2.Tricompartment osteoarthritic changes with severe joint space narrowing in the patellofemoral laurent rtment. 3.Small knee joint effusion with possible intra-articular body. Reviewed by: Avery Copeland MD on 05/19/2023 3:23 PM PDT Approved by: Avery Copeland MD on 05/19/2023 3:23 PM PDT Station ID: [id number]
--- NOTE | 2023-05-19 15:49 | ED Physician Documentation ---
History of Present Illness - Stated complaint Stated Complaint: LT KNEE PX - Chief complaint Chief Complaint: Ext Problem - History obtained from History obtained from: Patient - History of Present Illness Pain level max: 5 Pain level now: 3 - Additonal information Additional information: 62-year-old female states that she twisted her left knee 1 week ago. Still having pain with walking. Worse with movement, better with rest. Noted swelling as well. No numbness or tingling. No focal weakness. States has a history of arthritis in the knee. 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: Tubal ligation, Hysterectomy - Present Medications Home Medications: Ambulatory Orders Medication Instructions Recorded Confirmed Amox/Clav 875/125 [Augmentin] 1 tab PO Q12H #20 tablet 10/15/21 Cyclobenzaprine [Flexeril] 10 mg PO DAILY PRN 10/15/21 10/15/21 Ergocalciferol [Vitamin D2] 1 cap PO DAILY 10/15/21 10/15/21 Escitalopram [Lexapro] 10 mg PO DAILY 10/15/21 10/15/21 Ibuprofen [Motrin] 800 mg PO Q8HR PRN 10/15/21 10/15/21 Meloxicam [Mobic] 15 mg PO DAILY 10/15/21 10/15/21 Propranolol [Inderal] 10 mg PO BID 10/15/21 10/15/21 diphenhydrAMINE [Benadryl] 25 mg PO HS PRN #30 cap 10/15/21 hydroCHLOROthiazide [Hydrodiuril] 25 mg PO DAILY 10/15/21 10/15/21 traZODone [Desyrel] 25 mg PO QPM PRN 10/15/21 10/15/21 Doxycycline Hyclate 100 mg PO BID 7 Days #14 cap 05/03/22 HYDROcod/ACETAM 5/325 [Addison 5/325] 1 ea PO Q6H PRN #15 tablet 05/03/22 Mupirocin 2% Oint [Bactroban 2% 1 applic TOP TID #15 gm 05/03/22 Oint] cephALEXin [Keflex] 500 mg PO TID #20 cap 05/03/22 - Allergies Allergies/Adverse Reactions: Allergies Allergy/AdvReac Type Severity Reaction Status Date / Time propoxyphene napsylate * Allergy Unknown Verified 05/19/23 14:08 [From Darvocet-N] acetaminophen [From Percocet] AdvReac Hallucinati Verified 05/19/23 14:08 ons morphine AdvReac Emesis Verified 05/19/23 14:08 oxycodone HCl * AdvReac Hallucinati Verified 05/19/23 14:08 [From Percocet] ons propoxyphene HCl * AdvReac Hallucinati Verified 05/19/23 14:08 [From Darvon] ons - Social History Does the pt smoke?: No Smoking Status: Never smoker Does the pt drink ETOH?: No Does the pt have substance abuse?: No - Immunizations Immunizations are current?: Yes - POLST Patient has POLST: No PD ED PE NORMAL - Vitals Vital signs reviewed: Yes - General General: Alert and oriented X 3, No acute distress - Derm Derm: Warm and dry - Extremities Extremities: Other (Left knee - Mild joint effusion. ACL, MCL, PCL, LCL are intact. No significant bony tenderness. Full range of motion of the knee.) - Neuro Neuro: Alert and oriented X 3 Results - Vitals Vitals: Vital Signs - 24 hr 05/19/23 14:08 Temperature 36.5 C Heart Rate 70 Respiratory 16 Rate Blood Pressure 150/82 H O2 Saturation 94 Oxygen O2 Source Room air - Rads (name of study) Left knee x-ray Relevant Findings:: Final report received, See rad report PD Medical Decision Making - ED course Complexity details: reviewed results, considered differential, d/w patient ED course: 62-year-old female with mild left knee effusion after what sounds like a knee sprain. She declines anything for pain here or for home. She has been walking on it for the past week and does not want any crutches, cane or walker. We will have her continue her current medications and follow-up with her doctor as need ed for further care. Recommend rest, ice, compression and elevation. Patient counseled regarding signs and symptoms for which I believe and urgent re- evaluation would be necessary. Patient with good understanding of and agreement to plan and is comfortable going home at this time This document was made in part using voice recognition software. While efforts are made to proofread this document, sound alike and grammatical errors may occur. Departure - Departure Disposition: 01 Home, Self Care Clinical Impression: Knee effusion Qualifiers: Laterality: left Qualified Code(s): M25.462 - Effusion, left knee Left knee sprain Qualifiers: Encounter type: initial encounter Involved ligament of knee: other ligament Qualified Code(s): S83.8X2A - Sprain of other specified parts of left knee, initial encounter Condition: Good Instructions: ED Effusion Knee Follow-Up: your,doctor in 1 week [Other] Comments: You can use Motrin or Tylenol as needed for pain. You can ice the knee as well. Your x-ray does show a small joint effusion. There is no evidence of fracture. If you are still having pain in 1 week, you should follow-up with your PCP for further care. PROCEDURE: Knee 4 View LT INDICATIONS: Trauma TECHNIQUE: 4 views of the left knee(s) were acquired. COMPARISON: None. FINDINGS: Bones: No fractures or dislocations. No suspicious bony lesions. Tricompartment osteoarthritic changes with joint space narrowing and marginal osteophytosis. There is severe joint space narrowing within the patellofemoral compartment with subchondral sclerosis and cystic changes. Soft tissues: Small knee joint effusion with possible intra-articular body. No suspicious soft tissue calcifications or masses. IMPRESSION: 1.No acute fracture or dislocation. 2.Tricompartment osteoarthritic changes with severe joint space narrowing in the patellofemoral compartment. 3.Small knee joint effusion with possible intra-articular body. Forms: PCP List Discharge Date/Time: 05/19/23 16:04
== END 2023-05-19 16:04 | disposition home or self-care (01) ==
LOC: ED 14:05
DX: S83.92XA Sprain of unspecified site of left knee, initial encounter (principal); X50.1XXA Overexertion from prolonged static or awkward postures, initial encounter
CPT/HCPCS: 99283